=== PATIENT | male | born 1970 | race Hispanic/Latino ===

== ENCOUNTER 2023-07-14 08:00 | Outpatient (CLI) | payer BC | END 2023-07-14 08:01 | disposition home or self-care (01) | LOC: SCSMRI 08:00 | PROVIDERS: ATTEND Family Medicine | DX: M54.31 Sciatica, right side (principal); N13.30 Unspecified hydronephrosis; M48.061 Spinal stenosis, lumbar region without neurogenic claudication; R59.0 Localized enlarged lymph nodes | CPT/HCPCS: 72148 ==

== ENCOUNTER 2023-07-15 13:51 | Inpatient (IN) | payer BC ==
[2023-07-15 15:05] VITALS: BMI 26.0
[2023-07-15 15:27] LABS: #Basophils 0.05 10x3/uL (0.0-0.2); #Eosinphils Less than 0.03 10x3/uL (0.0-0.7); %Basophils 0.3 % (0.0-1.0); %Eosinophils 0.1 % (0.0-10.0); %Lymphocytes 8.6 % (21.0-51.0); %Monocytes 8.8 % (0.0-10.0); %Neutrophils 81.8 % (42.0-75.0); Hematocrit 25.3 % (42.0-52.0); Hemoglobin 8.2 g/dL (14.0-18.0); Mean Corpuscular HGB CONC 32.4 g/dL (32.0-36.0); Mean Corpuscular Hemoglobin 25.9 pg (27.0-31.0); Mean Corpuscular Volume 80.1 fL (78.0-98.0); Mean Platelet Volume 8.8 fL (7.4-10.4); Platelet Count 606 10x3/uL (130-400); RBC Distribution Width 12.7 % (11.5-14.5); Red Blood Cell (RBC) Count 3.16 mill/uL (4.70-6.10)
[2023-07-15 16:00] LABS: ALT (SGPT) 78 U/L (8-55); AST (SGOT) 49 U/L (5-34); Albumin 3.1 g/dL (3.5-5.0); Alkaline Phosphatase 76 U/L (40-110); Anion Gap 15 mmol/L (10-20); BUN (Urea Nitrogen) 20 mg/dL (8.4-25.7); Bilirubin, Total 0.4 mg/dL (0.2-1.2); Calc. Creatinine Clearance 67 mL/min (70-130); Calcium 9.4 mg/dL (7.8-10.44); Carbon Dioxide 26 mmol/L (22-29); Chloride 99 mmol/L (98-107); Estimated GFR 52; Globulin 3.7 g/dL (2.4-3.5); Glucose 117 mg/dL (70-105); Potassium 3.4 mmol/L (3.5-5.1); Protein, Total 6.8 g/dL (6.0-8.3); Sodium 137 mmol/L (136-145)
[2023-07-15] MEDS ORDERED: Morphine 2 MG/ML VIAL SLOW IVP PRN (16:07)
[2023-07-15] MEDS ORDERED: Ondansetron ODT 4 MG TAB PO PRN (16:07)
[2023-07-15] MEDS ORDERED: Ondansetron PF 4 MG/2 ML Vial IVP PRN (16:07)
[2023-07-15] MEDS ORDERED: Acetaminophen 650 MG Suppository PR PRN (16:07)
[2023-07-15] MEDS: Potassium Chloride 20 MEQ TAB PO SCH (16:41)
[2023-07-15] MEDS: Sodium Chloride 0.9% 1,000 ML IV SCH (16:41)
[2023-07-15] MEDS: Potassium Chloride 10 MEQ in Premix 1 BAG IVPB SCH (17:00)
[2023-07-15] MEDS: GoLYTELY 4,000 ml Bottle PO SCH (19:19)
[2023-07-15] MEDS: Morphine 4 MG/ML VIAL SLOW IVP PRN (20:42)
[2023-07-15] MEDS: Pantoprazole 40 MG VIAL IVP SCH (20:43)
[2023-07-16 06:36] LABS: #Basophils 0.06 10x3/uL (0.0-0.2); %Basophils 0.5 % (0.0-1.0); %Eosinophils 0.3 % (0.0-10.0); %Lymphocytes 15.3 % (21.0-51.0); %Monocytes 10.3 % (0.0-10.0); %Neutrophils 73.1 % (42.0-75.0); Hematocrit 23.2 % (42.0-52.0); Hemoglobin 7.5 g/dL (14.0-18.0); Mean Corpuscular HGB CONC 32.3 g/dL (32.0-36.0); Mean Corpuscular Hemoglobin 25.9 pg (27.0-31.0); Mean Platelet Volume 8.6 fL (7.4-10.4); Platelet Count 552 10x3/uL (130-400); RBC Distribution Width 12.7 % (11.5-14.5)
[2023-07-16 06:51] LABS: ALT (SGPT) 68 U/L (8-55); AST (SGOT) 42 U/L (5-34); Alkaline Phosphatase 70 U/L (40-110); Anion Gap 14 mmol/L (10-20); BUN (Urea Nitrogen) 17 mg/dL (8.4-25.7); Bilirubin, Total 0.5 mg/dL (0.2-1.2); Calc. Creatinine Clearance 70 mL/min (70-130); Calcium 8.7 mg/dL (7.8-10.44); Carbon Dioxide 29 mmol/L (22-29); Chloride 100 mmol/L (98-107); Estimated GFR 55; Globulin 3.4 g/dL (2.4-3.5); Glucose 112 mg/dL (70-105); Potassium 2.9 mmol/L (3.5-5.1); Protein, Total 6.4 g/dL (6.0-8.3); Sodium 140 mmol/L (136-145)
[2023-07-16] MEDS ORDERED: Lidocaine 1% PF 5 ML VIAL ONE (09:16)
[2023-07-16] MEDS ORDERED: PROPOFOL 40 ML ONE (09:16)
[2023-07-16] MEDS ORDERED: fentaNYL 50 mcg/mL 1 mL Vial ONE ×4 (10:00→13:11)
[2023-07-16] MEDS ORDERED: Midazolam HCl 2 mg/2 ml Vial ONE (10:00)
[2023-07-16] MEDS ORDERED: LevoFLOXacin D5W 500 mg (100 mL) BAG ONE (10:12)
[2023-07-16] MEDS ORDERED: Dexamethasone 20 MG/5 ML VIAL ONE (10:42)
[2023-07-16] MEDS ORDERED: Ondansetron PF 4 MG/2 ML Vial ONE (10:42)
[2023-07-16] MEDS ORDERED: fentaNYL PF 100 MCG/2 ML SYRINGE ONE (11:07)
[2023-07-16 11:27] VITALS: BMI 26.0
[2023-07-16 15:10] LABS: INR-International Normal Ratio 1.3; Prothrombin Time 16.6 sec (12.0-14.7)
[2023-07-16 15:11] LABS: PTT 49.2 sec (22.9-36.1)
[2023-07-16] MEDS ORDERED: hydrALAZINE 20 MG/ML VIAL SLOW IVP PRN (15:28)
[2023-07-16] MEDS: Potassium Chloride 20 MEQ in Premix 1 BAG IVPB SCH ×2 (16:24→16:25)
[2023-07-16] MEDS ORDERED: Oxybutynin 5 MG TAB PO PRN (17:25)
[2023-07-16 18:28] LABS: Bacteria/HPF 2+ HPF (None Seen); Bilirubin Negative (Negative); Blood, Urine 3+ (Negative); Clarity Turbid (Clear); Glucose, Urine (Dipstick) Normal (Negative); Ketone, Urine Negative (Negative); Leukocyte 250 Leu/uL (Negative); Nitrite Negative (Negative); Protein, Urine (Dipstick) 100 mg/dL (Neg-Trace); RBC/HPF Greater than 50 HPF (0-3); Specific Gravity, Urine 1.009 (1.002-1.036); Squamous Epithelial None Seen HPF (0-3); Urobilinogen Normal mg/dL (Less than 2); pH, Urine 6.5 (5.0-9.0)
[2023-07-17 08:03] LABS: #Basophils Less than 0.03 10x3/uL (0.0-0.2); #Eosinphils Less than 0.03 10x3/uL (0.0-0.7); %Basophils 0.2 % (0.0-1.0); %Eosinophils 0.1 % (0.0-10.0); %Monocytes 9.8 % (0.0-10.0); %Neutrophils 72.6 % (42.0-75.0); Hematocrit 22.5 % (42.0-52.0); Hemoglobin 7.1 g/dL (14.0-18.0); Mean Corpuscular HGB CONC 31.6 g/dL (32.0-36.0); Mean Corpuscular Hemoglobin 25.5 pg (27.0-31.0); Mean Corpuscular Volume 80.9 fL (78.0-98.0); Mean Platelet Volume 8.8 fL (7.4-10.4); Platelet Count 482 10x3/uL (130-400); RBC Distribution Width 12.8 % (11.5-14.5); Red Blood Cell (RBC) Count 2.78 mill/uL (4.70-6.10)
[2023-07-17 08:29] LABS: Anion Gap 14 mmol/L (10-20); BUN (Urea Nitrogen) 10 mg/dL (8.4-25.7); Calc. Creatinine Clearance 96 mL/min (70-130); Calcium 8.7 mg/dL (7.8-10.44); Carbon Dioxide 27 mmol/L (22-29); Chloride 103 mmol/L (98-107); Estimated GFR 80; Glucose 104 mg/dL (70-105); Potassium 3.3 mmol/L (3.5-5.1); Sodium 141 mmol/L (136-145)
[2023-07-17] MEDS: Losartan 25 MG TAB PO SCH (08:34)
[2023-07-17] MEDS: Tamsulosin HCl 0.4 MG CAP PO SCH (08:34)
[2023-07-17] MEDS: Acetaminophen 325 MG TAB PO PRN (10:28)
[2023-07-17] MEDS: cefTRIAXone\\ROCEPHIN 2 GM in Sodium Chloride 0.9% 100 ML IVPB SCH (12:32)
[2023-07-17] MEDS ORDERED: Methyl Salicylate/Menthol 85 GM TUBE TOP PRN (16:10)
[2023-07-17] MEDS: Potassium Chloride 20 MEQ in Premix 1 BAG IVPB SCH (17:07)
[2023-07-18] MEDS: Potassium Chloride 20 MEQ in Premix 1 BAG IVPB SCH (11:01)
[2023-07-19 05:49] LABS: #Basophils 0.07 10x3/uL (0.0-0.2); %Eosinophils 3.5 % (0.0-10.0); %Lymphocytes 26.1 % (21.0-51.0); %Neutrophils 58.1 % (42.0-75.0); Hematocrit 23.9 % (42.0-52.0); Hemoglobin 7.6 g/dL (14.0-18.0); Mean Corpuscular HGB CONC 31.8 g/dL (32.0-36.0); Mean Corpuscular Hemoglobin 26.3 pg (27.0-31.0); Mean Corpuscular Volume 82.7 fL (78.0-98.0); Mean Platelet Volume 8.9 fL (7.4-10.4); Platelet Count 464 10x3/uL (130-400); RBC Distribution Width 13.1 % (11.5-14.5); Red Blood Cell (RBC) Count 2.89 mill/uL (4.70-6.10)
[2023-07-19 06:03] LABS: Anion Gap 12 mmol/L (10-20); BUN (Urea Nitrogen) 6 mg/dL (8.4-25.7); Calc. Creatinine Clearance 128 mL/min (70-130); Calcium 8.6 mg/dL (7.8-10.44); Carbon Dioxide 25 mmol/L (22-29); Chloride 106 mmol/L (98-107); Estimated GFR 106; Glucose 93 mg/dL (70-105); Sodium 140 mmol/L (136-145)
[2023-07-19] MEDS: Potassium Chloride 20 MEQ TAB PO SCH (09:33)
[2023-07-19 11:58] VITALS: BP 139/85; TEMP 97.9
== END 2023-07-19 12:45 | disposition home or self-care (01) | DRG 375 ==
LOC: UNDOADMIN 13:51 → SURG A 13:51
PROVIDERS: ADMIT Internal Medicine; ATTEND Internal Medicine
PROC: 0DBP8ZX Excision of Rectum, Via Natural or Artificial Opening Endoscopic, Diagnostic (ICD-10-PCS; 2023-07-16)
PROC: BT141ZZ Fluoroscopy of Kidneys, Ureters and Bladder using Low Osmolar Contrast (ICD-10-PCS; 2023-07-16)
PROC: 0T788ZZ Dilation of Bilateral Ureters, Via Natural or Artificial Opening Endoscopic (ICD-10-PCS; 2023-07-16)
PROC: 30233N1 Transfusion of Nonautologous Red Blood Cells into Peripheral Vein, Percutaneous Approach (ICD-10-PCS; principal; 2023-07-17)
DX: C19 Malignant neoplasm of rectosigmoid junction (principal); N13.1 Hydronephrosis with ureteral stricture, not elsewhere classified; N17.9 Acute kidney failure, unspecified; N13.30 Unspecified hydronephrosis; I10 Essential (primary) hypertension; Z79.899 Other long term (current) drug therapy; Z80.0 Family history of malignant neoplasm of digestive organs; M54.50 Low back pain, unspecified; R59.1 Generalized enlarged lymph nodes; D50.0 Iron deficiency anemia secondary to blood loss (chronic); E87.6 Hypokalemia; R10.9 Unspecified abdominal pain; R53.83 Other fatigue; M54.31 Sciatica, right side; M48.061 Spinal stenosis, lumbar region without neurogenic claudication; R59.0 Localized enlarged lymph nodes
CPT/HCPCS: 36415; 36430; 72148; 74018; 74176; 74420; 76770; 80048; 80053; 81001; 82378; 83735; 85025; 85610; 85730; 86850; 86900; 86901; 87086; 88305; C1747; C2617; C9113; J0696; J1100; J1956; J2250; J2270; J2405; J2704; J3010; J3480; J3490; J7050; P9016

== ENCOUNTER → 2023-07-30 | Day surgery (SDC) | payer BC ==
[~2023-07-30] MED LIST: LevoFLOXacin D5W 500 mg (100 mL) BAG ONE; Lidocaine 1% w/Epinephrine 1:100K 20 ML VIAL ONE; Midazolam HCl 2 mg/2 ml Vial ONE; fentaNYL 50 mcg/mL 1 mL Vial ONE
== END ==
LOC: SPEC 07:04
PROVIDERS: ATTEND Urology
PROC: 0T9030Z Drainage of Right Kidney with Drainage Device, Percutaneous Approach (ICD-10-PCS; principal; 2023-07-30)
PROC: 0T9130Z Drainage of Left Kidney with Drainage Device, Percutaneous Approach (ICD-10-PCS; principal; 2023-07-30)
DX: N13.30 Unspecified hydronephrosis (principal); C18.7 Malignant neoplasm of sigmoid colon; I10 Essential (primary) hypertension; Z86.16 Personal history of COVID-19; Z98.890 Other specified postprocedural states; Z88.8 Allergy status to other drugs, medicaments and biological substances
CPT/HCPCS: 50432; 76942; C1729; C1769; C1887; C1894; J1956; J2250; J3010

== ENCOUNTER 2023-08-05 08:01 | Outpatient (CLI) | payer BC ==
[2023-08-05] MEDS ORDERED: Iopamidol 370 76% 100 ML VIAL ONE (14:55)
== END 2023-08-05 08:02 | disposition home or self-care (01) ==
LOC: CT 08:01
PROVIDERS: ATTEND Internal Medicine Hematology & Oncology
DX: C20 Malignant neoplasm of rectum (principal); R91.8 Other nonspecific abnormal finding of lung field
CPT/HCPCS: 71260

== ENCOUNTER 2023-08-05 12:03 | Day surgery (SDC) | payer BC ==
[2023-08-04 14:13] VITALS: BMI 24.9
[2023-08-05] MEDS ORDERED: EPINEPHrine 1 MG/ML VIAL ONE (15:00)
[2023-08-05] MEDS ORDERED: Bupivacaine 0.25% HCL 30 ML VIAL ONE (15:00)
[2023-08-05] MEDS ORDERED: Lidocaine 2% PF 5 ML VIAL ONE (15:00)
[2023-08-05] MEDS ORDERED: PROPOFOL 20 ML ONE (15:04)
[2023-08-05] MEDS ORDERED: fentaNYL PF 100 MCG/2 ML SYRINGE ONE (15:04)
[2023-08-05] MEDS ORDERED: Midazolam HCl 2 mg/2 ml Vial ONE (15:04)
[2023-08-05] MEDS ORDERED: Sodium Chloride 0.9% 100 ML ONE (15:11)
[2023-08-05] MEDS ORDERED: CEFAZOLIN 2 GM VIAL ONE (15:11)
[2023-08-05] MEDS ORDERED: Ondansetron PF 4 MG/2 ML Vial ONE (15:34)
[2023-08-05] MEDS ORDERED: Dexamethasone 20 MG/5 ML VIAL ONE (15:34)
== END 2023-08-05 17:12 | disposition home or self-care (01) ==
LOC: SDC 12:03
PROVIDERS: ATTEND Surgery
PROC: 0JH60WZ Insertion of Totally Implantable Vascular Access Device into Chest Subcutaneous Tissue and Fascia, Open Approach (ICD-10-PCS; principal; 2023-08-05)
DX: C19 Malignant neoplasm of rectosigmoid junction (principal); Z88.8 Allergy status to other drugs, medicaments and biological substances
CPT/HCPCS: 71045; 71260; 93005; 93010; C1788; J0171; J0665; J1100; J1642; J2001; J2250; J2405; J2704; J3490

== ENCOUNTER 2023-08-11 08:00 | Outpatient (CLI) | payer BC | END 2023-08-11 08:01 | disposition home or self-care (01) | LOC: PET 08:00 | PROVIDERS: ATTEND Internal Medicine Hematology & Oncology | DX: C20 Malignant neoplasm of rectum (principal); K59.39 Other megacolon; N13.30 Unspecified hydronephrosis; Z93.6 Other artificial openings of urinary tract status | CPT/HCPCS: 78815; A9552 ==

== ENCOUNTER 2023-08-14 16:06 | Outpatient (CLI) | payer BC ==
[2023-08-14 17:04] LABS: #Basophils 0.02 10x3/uL (0.0-0.2); #Eosinphils 0.13 10x3/uL (0.0-0.5); #Monocytes 0.54 10x3/uL (0.0-1.1); %Basophils 0.2 % (0.0-2.0); %Eosinophils 1.1 % (0.0-6.0); %Lymphocytes 14.2 % (18.0-47.0); %Monocytes 4.6 % (0.0-10.0); %Neutrophils 79.5 % (40.0-75.0); Hematocrit 34.5 % (38.8-50.0); Hemoglobin 11.2 g/dL (13.5-17.5); Mean Corpuscular HGB CONC 32.5 g/dL (32.0-36.0); Mean Corpuscular Hemoglobin 26.7 pg (27.0-33.0); Mean Corpuscular Volume 82.1 fL (81.2-95.1); Mean Platelet Volume 9.2 fL (7.4-10.4); Platelet Count 516 10x3/uL (150-450); White Blood Cell (WBC) Count 11.8 10x3/uL (3.5-10.5)
[2023-08-14 17:33] LABS: Anion Gap 16 mmol/L (10-20); BUN (Urea Nitrogen) 13 mg/dL (8.4-25.7); Calc. Creatinine Clearance 0 mL/min (70-130); Calcium 9.1 mg/dL (7.8-10.44); Carbon Dioxide 22 mmol/L (22-29); Chloride 101 mmol/L (98-107); Estimated GFR 107; Glucose 141 mg/dL (70-105); Potassium 3.9 mmol/L (3.5-5.1); Sodium 135 mmol/L (136-145)
== END 2023-08-14 16:07 | disposition home or self-care (01) ==
LOC: LABBT 16:06
PROVIDERS: ATTEND Surgery
DX: Z01.812 Encounter for preprocedural laboratory examination (principal); C18.7 Malignant neoplasm of sigmoid colon
CPT/HCPCS: 80048; 85025

== ENCOUNTER 2023-08-14 16:30 | Inpatient (IN) | payer BC ==
[2023-08-12 15:43] VITALS: BMI 24.9
[2023-08-18] MEDS ORDERED: EPINEPHrine 1 MG/ML VIAL ONE (06:43)
[2023-08-18] MEDS ORDERED: Bupivacaine 0.25% HCL 30 ML VIAL ONE (06:43)
[2023-08-18] MEDS ORDERED: fentaNYL PF 100 MCG/2 ML SYRINGE ONE ×3 (06:53→09:50)
[2023-08-18] MEDS ORDERED: Rocuronium Bromide 10 MG/ML (10ML VIAL) ONE (06:54)
[2023-08-18] MEDS ORDERED: PROPOFOL 20 ML ONE (06:54)
[2023-08-18] MEDS ORDERED: Lidocaine 1% PF 5 ML VIAL ONE (06:54)
[2023-08-18] MEDS ORDERED: fentaNYL 50 mcg/mL 1 mL Vial ONE (07:11)
[2023-08-18] MEDS ORDERED: cefOXitin 2 GM VIAL ONE (07:46)
[2023-08-18] MEDS ORDERED: Sodium Chloride 0.9% 100 ML ONE (07:46)
[2023-08-18] MEDS ORDERED: Dexamethasone 20 MG/5 ML VIAL ONE (08:12)
[2023-08-18] MEDS ORDERED: PHENYLEPHRINE-NS 100 MCG/ML 10 ML SYRINGE ONE (08:12)
[2023-08-18] MEDS ORDERED: Ondansetron PF 4 MG/2 ML Vial ONE (08:31)
[2023-08-18] MEDS ORDERED: SUGAMMADEX SODIUM 200 MG/2 ML VIAL ONE (08:32)
[2023-08-18] MEDS ORDERED: Dexmedetomidine 200 MCG/2 ML VIAL ONE (08:35)
[2023-08-18] MEDS ORDERED: Glucagon 1 MG/ML KIT IM PRN (09:47)
[2023-08-18] MEDS ORDERED: Promethazine HCl 25 MG/ML VIAL IM PRN (09:47)
[2023-08-18] MEDS ORDERED: Oxybutynin 5 MG TAB PO PRN (09:47)
[2023-08-18] MEDS ORDERED: Dextrose 50% Abboject 50 ML SYRINGE SLOW IVP PRN (09:47)
[2023-08-18] MEDS ORDERED: Dextrose 5% in Water 1,000 ML IV PRN (09:47)
[2023-08-18] MEDS ORDERED: Ipratropium/Albuterol 3 ML NEB NEB PRN (09:47)
[2023-08-18] MEDS ORDERED: Ondansetron PF 4 MG/2 ML Vial IVP PRN (09:47)
[2023-08-18] MEDS ORDERED: hydrALAZINE 20 MG/ML VIAL SLOW IVP PRN (09:47)
[2023-08-18] MEDS: Acetaminophen 650 MG Suppository PR SCH (12:59)
[2023-08-18] MEDS: Morphine 4 MG/ML VIAL SLOW IVP PRN (13:45)
[2023-08-18] MEDS: Acetaminophen 325 MG TAB PO SCH (16:43)
[2023-08-18] MEDS: Sodium Chloride 0.9% 1,000 ML IV SCH (18:01)
[2023-08-18] MEDS: Famotidine/PF 20 mg/2ml Vial SLOW IVP SCH (20:32)
[2023-08-18] MEDS: Famotidine 20 MG TAB PO SCH (20:33)
[2023-08-19] MEDS: Enoxaparin 40 MG (0.4 mL) SYRINGE SC SCH (05:06)
[2023-08-19 05:23] LABS: #Basophils Less than 0.03 10x3/uL (0.0-0.2); #Eosinphils Less than 0.03 10x3/uL (0.0-0.7); %Basophils 0.1 % (0.0-1.0); %Eosinophils 0.1 % (0.0-10.0); %Lymphocytes 16.4 % (21.0-51.0); Hematocrit 30.3 % (42.0-52.0); Hemoglobin 9.7 g/dL (14.0-18.0); Mean Corpuscular Hemoglobin 26.3 pg (27.0-31.0); Mean Corpuscular Volume 82.1 fL (78.0-98.0); Mean Platelet Volume 9.4 fL (7.4-10.4); Platelet Count 410 10x3/uL (130-400); RBC Distribution Width 18.5 % (11.5-14.5); Red Blood Cell (RBC) Count 3.69 mill/uL (4.70-6.10)
[2023-08-19 05:53] LABS: Anion Gap 15 mmol/L (10-20); BUN (Urea Nitrogen) 11 mg/dL (8.4-25.7); Calc. Creatinine Clearance 150 mL/min (70-130); Calcium 8.9 mg/dL (7.8-10.44); Carbon Dioxide 24 mmol/L (22-29); Chloride 104 mmol/L (98-107); Estimated GFR 112; Glucose 96 mg/dL (70-105); Potassium 3.6 mmol/L (3.5-5.1); Sodium 139 mmol/L (136-145)
[2023-08-19] MEDS: oxyCODONE 5 MG TAB PO PRN (09:06)
[2023-08-19] MEDS: Tamsulosin HCl 0.4 MG CAP PO SCH (09:06)
[2023-08-19] MEDS: Losartan 25 MG TAB PO SCH (09:07)
[2023-08-19] MEDS: Polyethylene Glycol 3350 17 GM Packet PO SCH (09:08)
[2023-08-19] MEDS ORDERED: Sodium Chloride 0.9% 1,000 ML IV SCH (16:10)
[2023-08-20] MEDS: Enoxaparin 40 MG (0.4 mL) SYRINGE SC SCH (10:15)
[2023-08-20 13:06] VITALS: BP 122/81; TEMP 97.7
== END 2023-08-20 15:30 | disposition home or self-care (01) | DRG 330 ==
LOC: SURG A 08-18 05:57
PROVIDERS: ADMIT Surgery; ATTEND Surgery
PROC: 0D1L4Z4 Bypass Transverse Colon to Cutaneous, Percutaneous Endoscopic Approach (ICD-10-PCS; principal; 2023-08-18)
DX: C19 Malignant neoplasm of rectosigmoid junction (principal); C78.6 Secondary malignant neoplasm of retroperitoneum and peritoneum; Z88.8 Allergy status to other drugs, medicaments and biological substances; I10 Essential (primary) hypertension
CPT/HCPCS: 36415; 36416; 80048; 85025; 97139; J0171; J0665; J0694; J1100; J1650; J2270; J2405; J2704; J3010; J3490; J7050

== ENCOUNTER 2023-09-05 22:45 | Emergency (ER) | payer BC ==
[2023-09-05] MEDS ORDERED: Ondansetron PF 4 MG/2 ML Vial ONE (23:53)
[2023-09-05] MEDS ORDERED: Ketorolac Tromethamine 30 MG (1 mL) VIAL ONE (23:53)
[2023-09-05 23:55] LABS: #Basophils 0.03 10x3/uL (0.0-0.2); %Basophils 0.3 % (0.0-1.0); %Eosinophils 1.5 % (0.0-10.0); %Lymphocytes 20.2 % (21.0-51.0); %Monocytes 4.5 % (0.0-10.0); %Neutrophils 73.2 % (42.0-75.0); Hematocrit 36.3 % (42.0-52.0); Hemoglobin 12.2 g/dL (14.0-18.0); Mean Corpuscular HGB CONC 33.6 g/dL (32.0-36.0); Mean Corpuscular Hemoglobin 27.2 pg (27.0-31.0); Mean Corpuscular Volume 80.8 fL (78.0-98.0); Mean Platelet Volume 8.8 fL (7.4-10.4); Platelet Count 352 10x3/uL (130-400); RBC Distribution Width 17.2 % (11.5-14.5); Red Blood Cell (RBC) Count 4.49 mill/uL (4.70-6.10)
[2023-09-06 00:13] LABS: ALT (SGPT) 17 U/L (8-55); AST (SGOT) 20 U/L (5-34); Albumin 3.7 g/dL (3.5-5.0); Alkaline Phosphatase 95 U/L (40-110); Anion Gap 15 mmol/L (10-20); BUN (Urea Nitrogen) 18 mg/dL (8.4-25.7); Bilirubin, Total 0.7 mg/dL (0.2-1.2); Calc. Creatinine Clearance 0 mL/min (70-130); Calcium 9.8 mg/dL (7.8-10.44); Carbon Dioxide 26 mmol/L (22-29); Chloride 98 mmol/L (98-107); Estimated GFR 98; Globulin 3.5 g/dL (2.4-3.5); Glucose 106 mg/dL (70-105); Lipase 31 U/L (8-78); Potassium 3.4 mmol/L (3.5-5.1); Protein, Total 7.2 g/dL (6.0-8.3); Sodium 136 mmol/L (136-145)
[2023-09-06 02:01] LABS: Bacteria/HPF None Seen HPF (None Seen); Bilirubin Negative (Negative); Blood, Urine 3+ (Negative); CAUTI Indications for Culture Dysuria,urgency,freq; Calcium Oxalate Crystals 1+ HPF (None Seen); Clarity Turbid (Clear); Glucose, Urine (Dipstick) Normal (Negative); Ketone, Urine Trace mg/dL (Negative); Leukocyte 250 Leu/uL (Negative); Nitrite 1+ (Negative); Protein, Urine (Dipstick) 70 mg/dL (Neg-Trace); RBC/HPF Greater than 50 HPF (0-3); Specific Gravity, Urine 1.016 (1.002-1.036); Squamous Epithelial 0-3 HPF (0-3); Urobilinogen Normal mg/dL (Less than 2); WBC/HPF 21-50 HPF (0-3); pH, Urine 5.5 (5.0-9.0)
[2023-09-06 02:03] LABS: Urine Culture Reflex Yes Yes
[2023-09-06 04:43] LABS: Bilirubin Negative (Negative); Blood, Urine 3+ (Negative); CAUTI Indications for Culture Dysuria,urgency,freq; Calcium Oxalate Crystals Rare HPF (None Seen); Clarity Turbid (Clear); Glucose, Urine (Dipstick) Normal (Negative); Ketone, Urine Negative (Negative); Leukocyte 250 Leu/uL (Negative); Nitrite Negative (Negative); Protein, Urine (Dipstick) 70 mg/dL (Neg-Trace); Specific Gravity, Urine 1.003 (1.002-1.036); Squamous Epithelial None Seen HPF (0-3); Urobilinogen Normal mg/dL (Less than 2); pH, Urine 6.5 (5.0-9.0)
[2023-09-06 04:45] LABS: Bacteria/HPF 1+ HPF (None Seen)
[2023-09-06 04:46] LABS: Urine Culture Reflex No No
== END 2023-09-06 04:11 | disposition home or self-care (01) ==
LOC: ERS 22:45
DX: T83.092A Other mechanical complication of nephrostomy catheter, initial encounter (principal); I10 Essential (primary) hypertension; Z79.899 Other long term (current) drug therapy
CPT/HCPCS: 74176; 80053; 81001; 83690; 85025; 87086; 96361; 96374; 96375; J1885; J2405

== ENCOUNTER → 2023-11-16 | Day surgery (SDC) | payer BC ==
[~2023-11-16] MED LIST changes: +Iopamidol 30 ML ONE; +LevoFLOXacin 500 mg/D5W 500 MG in Premix 1 BAG IVPB SCH; -LevoFLOXacin D5W 500 mg (100 mL) BAG ONE; -Midazolam HCl 2 mg/2 ml Vial ONE; +Sodium Bicarbonate 0.5 MEQ/ML SDV 10 ML ONE; +Sodium Chloride 0.9% 500 ML ONE; -fentaNYL 50 mcg/mL 1 mL Vial ONE
== END ==
LOC: SPEC 07:02
PROVIDERS: ATTEND Urology
PROC: 0T25X0Z Change Drainage Device in Kidney, External Approach (ICD-10-PCS; principal; 2023-11-16)
DX: R33.9 Retention of urine, unspecified (principal)
CPT/HCPCS: 50435; 75984; C1769; J1642; J1956; J7030; Q9967

== ENCOUNTER 2023-12-28 07:12 | Outpatient (CLI) | payer BC ==
[2023-12-28] MEDS ORDERED: Iopamidol 370 76% 100 ML VIAL ONE (15:22)
== END 2023-12-28 07:13 | disposition home or self-care (01) ==
LOC: CT 07:12
PROVIDERS: ATTEND Urology
DX: N13.30 Unspecified hydronephrosis (principal); C19 Malignant neoplasm of rectosigmoid junction
CPT/HCPCS: 74178

== ENCOUNTER → 2023-12-28 | Day surgery (SDC) | payer BC ==
[~2023-12-28] MED LIST changes: -LevoFLOXacin 500 mg/D5W 500 MG in Premix 1 BAG IVPB SCH; +LevoFLOXacin 750 mg/D5W 750 MG in Premix 1 BAG IVPB SCH; +Midazolam HCl 2 mg/2 ml Vial ONE; -Sodium Bicarbonate 0.5 MEQ/ML SDV 10 ML ONE; +Sodium Bicarbonate 2.5 MEQ/5 ML SDV ONE; +Vancomycin 1 GM in Premix 1 BAG IVPB SCH; +fentaNYL 50 mcg/mL 1 mL Vial ONE
== END ==
LOC: SPEC 06:59
PROVIDERS: ATTEND Urology
DX: C18.7 Malignant neoplasm of sigmoid colon (principal); N13.30 Unspecified hydronephrosis; I10 Essential (primary) hypertension; Z93.6 Other artificial openings of urinary tract status; Z88.8 Allergy status to other drugs, medicaments and biological substances; Z79.899 Other long term (current) drug therapy
CPT/HCPCS: 50435; 75984; 99152; 99153; C1729; C1769; C1887; J1642; J1956; J2250; J3010; J3370-JW; J7030; Q9967

== ENCOUNTER 2024-01-11 12:58 | Outpatient (CLI) | payer BC | END 2024-01-11 12:59 | disposition home or self-care (01) | LOC: ULT 12:58 | PROVIDERS: ATTEND Urology | DX: N13.30 Unspecified hydronephrosis (principal) | CPT/HCPCS: 76770 ==

== ENCOUNTER 2024-01-22 12:38 | Emergency (ER) | payer BC ==
[2024-01-22 13:46] LABS: #Basophils 0.03 10x3/uL (0.0-0.2); %Basophils 0.7 % (0.0-1.0); %Eosinophils 1.9 % (0.0-10.0); %Lymphocytes 29.7 % (21.0-51.0); %Monocytes 5.6 % (0.0-10.0); %Neutrophils 61.9 % (42.0-75.0); Hematocrit 42.4 % (42.0-52.0); Hemoglobin 14.3 g/dL (14.0-18.0); Mean Corpuscular HGB CONC 33.7 g/dL (32.0-36.0); Mean Corpuscular Hemoglobin 31.6 pg (27.0-31.0); Mean Corpuscular Volume 93.8 fL (78.0-98.0); Mean Platelet Volume 9.2 fL (7.4-10.4); Platelet Count 104 10x3/uL (130-400); RBC Distribution Width 15.1 % (11.5-14.5); Red Blood Cell (RBC) Count 4.52 mill/uL (4.70-6.10)
[2024-01-22 14:01] LABS: ALT (SGPT) 30 U/L (8-55); AST (SGOT) 68 U/L (5-34); Albumin 3.3 g/dL (3.5-5.0); Alkaline Phosphatase 103 U/L (40-110); Anion Gap 14 mmol/L (10-20); BUN (Urea Nitrogen) 8 mg/dL (8.4-25.7); Bilirubin, Total 0.9 mg/dL (0.2-1.2); Calc. Creatinine Clearance 0 mL/min (70-130); Calcium 8.9 mg/dL (7.8-10.44); Carbon Dioxide 24 mmol/L (22-29); Chloride 107 mmol/L (98-107); Estimated GFR 108; Globulin 3.5 g/dL (2.4-3.5); Glucose 153 mg/dL (70-105); Lipase 20 U/L (8-78); Potassium 4.1 mmol/L (3.5-5.1); Protein, Total 6.8 g/dL (6.0-8.3); Sodium 141 mmol/L (136-145)
[2024-01-22 14:13] LABS: Anisocytosis SLIGHT = 6-15 cells HPF (0-5); Burr Cells MODERATE= 6-15 cells HPF (0-1); Platelet Adequacy Comment Platelets Decreased; Poikilocytosis SLIGHT = 6-15 cells HPF (0-5); Tear Drops SLIGHT = 2-5 cells HPF (0-1)
[2024-01-22 15:10] LABS: Bacteria/HPF None Seen HPF (None Seen); Bilirubin Negative (Negative); Blood, Urine 1+ (Negative); CAUTI Indications for Culture Dysuria,urgency,freq; Clarity Clear (Clear); Glucose, Urine (Dipstick) Normal (Negative); Ketone, Urine Negative (Negative); Leukocyte 500 Leu/uL (Negative); Nitrite Negative (Negative); Protein, Urine (Dipstick) 20 mg/dL (Neg-Trace); Specific Gravity, Urine 1.024 (1.002-1.036); Squamous Epithelial 0-3 HPF (0-3)
[2024-01-22 15:13] LABS: Urine Culture Reflex Yes Yes
== END 2024-01-22 21:03 | disposition home or self-care (01) ==
LOC: ERS 12:38
DX: K94.23 Gastrostomy malfunction (principal); N13.2 Hydronephrosis with renal and ureteral calculous obstruction; I10 Essential (primary) hypertension; Z55.6 Problems related to health literacy; C19 Malignant neoplasm of rectosigmoid junction; D50.8 Other iron deficiency anemias; R59.0 Localized enlarged lymph nodes; N13.30 Unspecified hydronephrosis
CPT/HCPCS: 36415; 74176; 78815; 80053; 81001; 83690; 85025; 87086; A9552

== ENCOUNTER 2024-01-26 10:23 | Outpatient (CLI) | payer BC | END 2024-01-26 10:24 | disposition home or self-care (01) | LOC: ULT 10:23 | PROVIDERS: ATTEND Urology | DX: N13.30 Unspecified hydronephrosis (principal) | CPT/HCPCS: 76770 ==

== ENCOUNTER → 2024-01-26 | Day surgery (SDC) | payer BC ==
[~2024-01-26] MED LIST changes: +Iopamidol 100 ML FS ONE; -Iopamidol 30 ML ONE
== END ==
LOC: SPEC 07:03
PROVIDERS: ATTEND Urology
PROC: 0T25X0Z Change Drainage Device in Kidney, External Approach (ICD-10-PCS; principal; 2024-01-26)
DX: N13.30 Unspecified hydronephrosis (principal); C18.7 Malignant neoplasm of sigmoid colon; I10 Essential (primary) hypertension; Z93.6 Other artificial openings of urinary tract status; Z88.8 Allergy status to other drugs, medicaments and biological substances; Z79.2 Long term (current) use of antibiotics; Z79.899 Other long term (current) drug therapy
CPT/HCPCS: 50435; 75984; 76770; 99152; 99153; C1729; C1769; C1887; C1894; J1642; J1956; J2250; J3010; J3370; J7030; Q9967

== ENCOUNTER 2024-03-10 07:11 | Day surgery (SDC) | payer BC ==
[2024-03-10] MEDS ORDERED: Sodium Chloride 0.9% 500 ML ONE (07:16)
[2024-03-10] MEDS ORDERED: Iopamidol 30 ML ONE (07:16)
[2024-03-10] MEDS ORDERED: Sodium Bicarbonate 2.5 MEQ/5 ML SDV ONE ×2 (07:16→08:15)
[2024-03-10] MEDS ORDERED: Lidocaine 1% w/Epinephrine 1:100K 20 ML VIAL ONE ×2 (07:16→08:15)
[2024-03-10] MEDS ORDERED: Midazolam HCl 2 mg/2 ml Vial ONE (08:15)
[2024-03-10] MEDS ORDERED: LevoFLOXacin 750 mg/D5W 750 MG in Premix 1 BAG IVPB SCH (08:15)
[2024-03-10] MEDS ORDERED: Vancomycin 1 GM in Premix 1 BAG IVPB SCH (08:15)
[2024-03-10] MEDS ORDERED: fentaNYL 50 mcg/mL 1 mL Vial ONE (08:15)
== END 2024-03-10 11:45 | disposition home or self-care (01) ==
LOC: SPEC 07:11
PROVIDERS: ATTEND Urology
PROC: 0T25X0Z Change Drainage Device in Kidney, External Approach (ICD-10-PCS; principal; 2024-03-10)
DX: N13.30 Unspecified hydronephrosis (principal); C18.7 Malignant neoplasm of sigmoid colon; Z93.6 Other artificial openings of urinary tract status; Z88.8 Allergy status to other drugs, medicaments and biological substances
CPT/HCPCS: 50435; 75984; 76770; 99152; 99153; C1729; C1769; C1887; C1894; J1642; J1956; J2250; J3010; J3370; J7030; Q9967

== ENCOUNTER 2024-09-13 08:28 | Day surgery (SDC) | payer BC ==
[2024-09-13 08:43] LABS: #Basophils 0.05 10x3/uL (0.0-0.2); #Eosinophils 0.21 10x3/uL (0.0-0.7); #Monocytes 0.74 10x3/uL (0.11-0.59); #Neutrophils 5.72 10x3/uL (1.40-6.50); %Basophils 0.6 % (0.0-1.0); %Eosinophils 2.4 % (0.0-10.0); %Lymphocytes 23.9 % (21.0-51.0); %Monocytes 8.3 % (0.0-10.0); %Neutrophils 64.2 % (42.0-75.0); Hematocrit 39.4 % (42.0-52.0); Hemoglobin 12.9 g/dL (14.0-18.0); Mean Corpuscular Hemoglobin 29.7 pg (27.0-31.0); Mean Corpuscular Volume 90.8 fL (78.0-98.0); Platelet Count 233 10x3/uL (130-400); Red Blood Cell (RBC) Count 4.34 mill/uL (4.70-6.10); White Blood Cell (WBC) Count 8.90 10x3/uL (4.8-10.8)
[2024-09-13 09:21] LABS: INR-International Normal Ratio 1.3; PTT 37.0 sec (22.9-36.1); Prothrombin Time 16.1 sec (12.0-14.7)
[2024-09-13] MEDS ORDERED: Lidocaine 1% w/Epinephrine 1:100K 20 ML VIAL ONE (10:20)
[2024-09-13] MEDS ORDERED: Sodium Bicarbonate 2.5 MEQ/5 ML SDV ONE (10:20)
== END 2024-09-13 12:00 | disposition home or self-care (01) ==
LOC: CT 08:28
PROVIDERS: ATTEND Internal Medicine Hematology & Oncology
PROC: 07BJ3ZX Excision of Left Inguinal Lymphatic, Percutaneous Approach, Diagnostic (ICD-10-PCS; principal; 2024-09-13)
DX: C77.5 Secondary and unspecified malignant neoplasm of intrapelvic lymph nodes (principal); C20 Malignant neoplasm of rectum; D50.8 Other iron deficiency anemias; Z88.8 Allergy status to other drugs, medicaments and biological substances
CPT/HCPCS: 36415; 49180; 77002; 77012; 85025; 85610; 85730; 88305; 88333; 88334; 88341; 88342; 99152; 99153; J1642; J2250; J3010

== ENCOUNTER 2024-10-18 07:41 | Day surgery (SDC) | payer BC ==
[2024-10-18] MEDS ORDERED: Lidocaine 1% w/Epinephrine 1:100K 20 ML VIAL ONE (08:02)
[2024-10-18] MEDS ORDERED: Sodium Bicarbonate 2.5 MEQ/5 ML SDV ONE (08:02)
== END 2024-10-18 10:30 | disposition home or self-care (01) ==
LOC: SPEC 07:41
PROVIDERS: ATTEND Urology
PROC: 0T25X0Z Change Drainage Device in Kidney, External Approach (ICD-10-PCS; principal; 2024-10-18)
DX: N13.30 Unspecified hydronephrosis (principal); C18.7 Malignant neoplasm of sigmoid colon; Z88.8 Allergy status to other drugs, medicaments and biological substances
CPT/HCPCS: 50435; 75984; 76770; C1729; C1769; J1642; J2250; J2543; J3010; J7030; Q9967

== ENCOUNTER 2024-11-10 11:58 | Day surgery (SDC) | payer BC ==
[2024-11-10] MEDS ORDERED: Sodium Bicarbonate 2.5 MEQ/5 ML SDV ONE (12:30)
[2024-11-10] MEDS ORDERED: Lidocaine 1% w/Epinephrine 1:100K 20 ML VIAL ONE (12:30)
[2024-11-10 14:45] LABS: #Basophils Less than 0.03 10x3/uL (0.0-0.2); #Eosinophils 0.03 10x3/uL (0.0-0.7); #Monocytes 1.28 10x3/uL (0.11-0.59); #Neutrophils 6.14 10x3/uL (1.40-6.50); %Basophils 0.2 % (0.0-1.0); %Eosinophils 0.3 % (0.0-10.0); %Lymphocytes 21.0 % (21.0-51.0); %Monocytes 13.4 % (0.0-10.0); %Neutrophils 64.5 % (42.0-75.0); Hematocrit 36.1 % (42.0-52.0); Hemoglobin 11.5 g/dL (14.0-18.0); Mean Corpuscular Hemoglobin 27.3 pg (27.0-31.0); Mean Corpuscular Volume 85.5 fL (78.0-98.0); Platelet Count 244 10x3/uL (130-400); Red Blood Cell (RBC) Count 4.22 mill/uL (4.70-6.10); White Blood Cell (WBC) Count 9.53 10x3/uL (4.8-10.8)
[2024-11-10 15:00] LABS: INR-International Normal Ratio 1.5; PTT 45.0 sec (22.9-36.1); Prothrombin Time 18.2 sec (12.0-14.7)
[2024-11-10 15:03] LABS: ALT (SGPT) 8 U/L (Less than 45); AST (SGOT) 24 U/L (11-34); Albumin 2.4 g/dL (3.1-4.5); Alkaline Phosphatase 137 U/L (40-110); Anion Gap 17 mmol/L (10-20); BUN (Urea Nitrogen) 11 mg/dL (8.4-25.7); Bilirubin, Total 0.5 mg/dL (0.3-1.2); Calc. Creatinine Clearance 0 mL/min (70-130); Calcium 9.5 mg/dL (7.8-10.44); Carbon Dioxide 23 mmol/L (22-29); Chloride 103 mmol/L (98-107); Globulin 5.2 g/dL (2.4-3.5); Glucose 96 mg/dL (70-105); Potassium 2.7 mmol/L (3.5-5.1); Sodium 140 mmol/L (136-145)
[2024-11-10 17:48] VITALS: BP 143/92; TEMP 98.4
== END 2024-11-10 17:00 | disposition home or self-care (01) ==
LOC: SPEC 11:58
PROVIDERS: ATTEND Urology
PROC: 0T25X0Z Change Drainage Device in Kidney, External Approach (ICD-10-PCS; principal; 2024-11-10)
DX: N13.30 Unspecified hydronephrosis (principal); Z88.8 Allergy status to other drugs, medicaments and biological substances
CPT/HCPCS: 50435; 75984; 76770; 80053; 85025; 85610; 85730; 87086; C1729; C1769; J1642; J2250; J2543; J3010; J7030; Q9967

== ENCOUNTER → 2024-11-14 | Day surgery (SDC) | payer BC ==
[~2024-11-14] MED LIST changes: -LevoFLOXacin 750 mg/D5W 750 MG in Premix 1 BAG IVPB SCH; -Midazolam HCl 2 mg/2 ml Vial ONE; -Sodium Chloride 0.9% 500 ML ONE; -Vancomycin 1 GM in Premix 1 BAG IVPB SCH; -fentaNYL 50 mcg/mL 1 mL Vial ONE
== END ==
LOC: SPEC 08:00
PROVIDERS: ATTEND Urology
PROC: 0T9B30Z Drainage of Bladder with Drainage Device, Percutaneous Approach (ICD-10-PCS; principal; 2024-11-14)
DX: N13.30 Unspecified hydronephrosis (principal); I10 Essential (primary) hypertension
CPT/HCPCS: 50432; 76942; 87086; 99152; 99153; C1729; C1769; J1642; J2250; J2543; J7030; Q9967

== ENCOUNTER 2024-12-17 21:24 | Emergency (ER) | payer BC ==
[2024-12-17] MEDS ORDERED: Sodium Bicarb 50 MEQ/50 ML Abboject 8.4% SYRINGE ONE (21:30)
[2024-12-17] MEDS ORDERED: EPINEPHrine 1 MG/10 ML Abboject SYRINGE ONE (21:30)
== END 2024-12-17 21:39 | disposition expired ==
LOC: ERS 21:24
DX: I46.9 Cardiac arrest, cause unspecified (principal); I10 Essential (primary) hypertension
CPT/HCPCS: 31500; 92950; J0165